=== PATIENT | female | born 1995 | race Caucasian/White ===

== ENCOUNTER 2021-01-03 20:41 | Emergency (ER) | payer OTHER, SELFPAY ==
[2021-01-03 20:43] VITALS: BP 129/84; PULSE 88; RESP 16; TEMP 36.4; O2SAT 99; BMI 24.7
--- NOTE | 2021-01-03 21:00 | RAD_ITS ---
INDICATION: INJURY -- 5TH FINGER EXAMINATION/TECHNIQUE: X-RAY - LEFT HAND XR Fingers Min 2 Views COMPARISON: None. FINDINGS: No acute fracture or malalignment. No blastic or lytic lesions. No degenerative changes are seen. The soft tissues are unremarkable. RAD/Finger(s) Min 2 Views IMPRESSION: No acute radiographic abnormalities. Electronically Signed: Delroy Andrade MD at 22:02 EDT Tel , Service support ,
--- NOTE | 2021-01-03 21:00 | RAD_ITS ---
INDICATION: INJURY EXAMINATION/TECHNIQUE: X-RAY - RIGHT XR Knee 3 Views COMPARISON: None. FINDINGS: No acute fracture or malalignment. No significant degenerative changes are seen. No joint effusion. The soft tissues are unremarkable. RAD/Knee 3 Views IMPRESSION: No acute radiographic abnormalities. Electronically Signed: Delroy Andrade MD at 22:02 EDT Tel , Service support ,
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
[2021-01-03 22:03] VITALS: PULSE 77; RESP 18; O2SAT 97
== END 2021-01-03 22:04 | disposition home or self-care (01) ==
LOC: ED 21:56
PROVIDERS: Emergency Provider Emergency Medicine; PCP Family Medicine
DX: S80.01XA Contusion of right knee, initial encounter (principal); V53.6XXA Passenger in pick-up truck or van injured in collision with car, pick-up truck or van in traffic accident, initial encounter
CPT/HCPCS: 73140; 73562; 99284